=== PATIENT | male | born 1990 | race Hispanic/Latino ===

== ENCOUNTER 2020-09-02 14:24 | Emergency (ER) | payer OTHER, MEDICAID, SELFPAY ==
[2020-09-02] VITALS (8 sets, daily range): BP systolic 168; BP diastolic 96; PULSE 99–110; RESP 20–23; TEMP 36.7–37.1; O2SAT 94–98
--- NOTE | ~2020-09-02 | XR_ITS ---
EXAMINATION: XR chest 1V portable DATE: 09/02/2020 15:05 INDICATION: Shortness of breath. Cough. COVID-19 pneumonia. TECHNIQUE: A single frontal view of the chest was obtained. COMPARISON: CT abdomen and pelvis 06/30/2015 FINDINGS: There are patchy airspace opacities in all lung zones bilaterally. No pleural effusion or p neumothorax. The heart size is normal. IMPRESSION: 1. Diffuse lung disease, consistent with COVID-19 pneumonia. Reviewed, dictated and finalized at location A. ECTIONERY COOKER
[2020-09-02 14:56] LABS: Basophils Percent Auto 0.4 % (0.2-1.2); Eosinophils Percent Auto 0.4 % (0-4.4); Hemoglobin 16.1 g/dL (14.0-18.0); Immature Granulocyte Absolute 0.01 K/mm3 (0.00-0.031); Immature Granulocyte Percent A 0.4 % (0-0.5); Lymphocytes Absolute Auto 0.61 K/mm3 (0.9-3.2); Lymphocytes Percent Auto 21.6 % (18.3-44.2); Mean Corpuscular HGB Conc 34.3 g/dl (32-36); Mean Corpuscular Hemoglobin 32.3 pg (26-34); Mean Corpuscular Volume 94.4 fl (80-100); Mean Platelet Volume 10.9 fl (7.4-10.4); Monocytes Absolute Auto 0.3 K/mm3 (0.1-0.6); Monocytes Percent Auto 8.9 % (2.6-8.5); Neutrophils Absolute Auto 1.9 K/mm3 (1.3-6.7); Neutrophils Percent Auto 68.3 % (45.5-73.1); Platelet Count Result 135 k/mm3 (150-375); Red Blood Count 4.98 M/mm3 (4.6-6.20); Red Cell Distribution Width 12.1 % (11.5-14.5); White Blood Count 2.8 K/mm3 (4.5-10.0)
[2020-09-02 15:08] LABS: Alanine Aminotransferase 51 U/L (4-50); Albumin Level 3.8 g/dL (3.5-5.1); Alkaline Phosphatase 74 U/L (38-126); Anion Gap 5 mmol/L (8-16); Aspartate Amino Transferase 70 U/L (17-59); Bilirubin,Total 0.6 mg/dL (0.2-1.3); Blood Urea Nitrogen 9 mg/dL (9-20); Calcium 8.2 mg/dL (8.4-10.2); Carbon Dioxide 29 mmol/L (22-30); Chloride 101 mmol/L (98-107); Estimated CRCL calculation 171 ml/min; Estimated Glomerular Filt Rate > 60; Glucose 105 mg/dL (75-110); Potassium 3.7 mmol/L (3.4-5.0); Sodium 135 mmol/L (137-145)
[2020-09-02 15:16] LABS: D Dimer 0.41 ug/mL (<0.48)
--- NOTE | 2020-09-02 15:54 | PC.NURSE ---
patient ambulated to restroom and back. RA sat >96%. does have increased cough after exertion. provider updated. resting on stretcher.
--- NOTE | 2020-09-02 16:24 | ED.GENADULT ---
HPI - General Adult General Chief complaint: Upper Respiratory Infection Stated complaint: SOB COVID+ 5JAN Time Seen by Provider: 09/02/20 14:36 Source: patient Mode of arrival: ambulatory Limitations: no limitations History of Present Illness HPI narrative: Patient presents with chief complaint of testing positive for Covid on August 23 and stating that he has noticed that he feels progressively more short of breath. Patient states that he notices the most during exertion or when laying flat or on his left side. Patient denies pain with inspiration. Patient states he sometimes has pain with his intermittent coughs. Patient states the only medication that he has been taking for his symptoms is occasional NyQuil. Patient denies fever, chills, chest pain, nausea, vomiting, diarrhea. Patient states that he finished his last dose of his Z-Elliot yesterday that was given to him by his primary care provider. Patient denies having respiratory diseases such as COPD or asthma. Patient denies taking any home medications. Related Data Allergies Allergy/AdvReac Type Severity Reaction Status Date / Time No Known Allergies Allergy Verified 04/11/16 20:08 Review of Systems Review of Systems: Narrative: CONSTITUTIONAL: Denies fever, chills, or sweats. EYES: Denies visual changes, redness, or discharge. ENT: Denies rhinorrhea, congestion, sore throat, or otalgia. CARDIOVASCULAR: Denies chest pain, palpitations, or edema. RESPIRATORY: Reports cough and dyspnea on exertion GASTROINTESTINAL: Denies abdominal pain, nausea, vomiting, or diarrhea. GENITOURINARY: Denies dysuria or hematuria. SKIN: Denies rash or itching. MUSCULOSKELETAL: Denies back pain, joint pain, or myalgia. NEUROLOGIC: Denies headache, numbness, dizziness, or weakness. PSYCHIATRIC: Denies anxiety or depression. Exam Narrative: Exam Narrative: GENERAL: Well-appearing, well-nourished, and in no acute distress. Morbidly obese HEAD: Normocephalic, atraumatic. EYES: PERRLA and EOMI. NECK: Supple. No adenopathy or masses. CHEST: Clear to auscultation. No respiratory distress. No wheezes rales or rhonchi HEART: Regular rate and rhythm. No murmur heard. Normal peripheral pulses. EXTREMITIES: Normal range of motion. No edema. SKIN: Warm, dry, no rash. NEURO: No focal deficits. Alert and oriented x3. PSYCH: Normal mood and affect. Course Vital Signs Vital signs: Vital Signs Temperature 98.1 F 09/02/20 14:30 Pulse Rate 110 H 09/02/20 14:30 Respiratory Rate 20 09/02/20 14:30 Blood Pressure 168/96 H 09/02/20 14:30 Pulse Oximetry 98 09/02/20 14:30 Temperature 98.1 F 09/02/20 14:30 Pulse Rate 99 09/02/20 15:37 Respiratory Rate 23 H 09/02/20 15:37 Blood Pressure 168/96 H 09/02/20 14:30 Pulse Oximetry 94 09/02/20 15:48 Medical Decision Making MDM Narrative Medical decision making narrative: Patient is maintaining oxygenation even with ambulation his oxygen saturation does not drop below 96% on room air. Patient's chest x-ray does show signs of Covid. Patient D-dimer is negative to r/o PE. Patient's heart rate 98 bpm. I have discussed with patient that his work-up is negative for any emergent symptoms. Discussed with patient the signs and symptoms of Covid and the need to follow-up with his primary care for further investigation to make sure that his symptoms resolve appropriately. Discussed with the patient the importance of self quarantining and keeping a close contact with the health department. Patient instructed to return to emergency department if he has any worsening or emergent symptoms. Vital Signs Vital Signs: Vital Signs Temperature 98.1 F 09/02/20 14:30 Pulse Rate 110 H 09/02/20 14:30 Respiratory Rate 20 09/02/20 14:30 Blood Pressure 168/96 H 09/02/20 14:30 Pulse Oximetry 98 09/02/20 14:30 Temperature 98.1 F 09/02/20 14:30 Pulse Rate 99 09/02/20 15:37 Respiratory Rate 23 H 09/02/20 15:37 Blood Pressur
== END 2020-09-02 16:54 | disposition home or self-care (01) ==
PROVIDERS: Physician Assistant; Emergency Provider Emergency Medicine
DX: U07.1 COVID-19 (principal)
CPT/HCPCS: 36415; 71045; 80053; 85025; 85055; 85380; 99283

== ENCOUNTER 2020-09-15 11:25 | Outpatient (CLI) | payer OTHER, SELFPAY ==
--- NOTE | ~2020-09-15 | XR_ITS ---
EXAMINATION: XR chest 2V EXAM DATE: 09/15/2020 11:57 INDICATION: Chest pain, right-sided sharp chest pain. States COVID 19 diagnosed 10 days ago. TECHNIQUE: Frontal and lateral projections of the chest obtained and reviewed. Comparison is made to prior examination from 09/02/2020. FINDINGS: Resolution of previously seen patchy bilateral COVID pneumonia. The lungs are clear. Ther e are no pleural effusions. The cardiomediastinal silhouette is within normal limits. There is no p neumothorax suspected. The bones and soft tissues are unremarkable. IMPRESSION: No acute cardiopulmonary findings. Reviewed, dictated and finalized at location A. NISTRATIVE PROJECT COORDINATOR
--- NOTE | 2020-09-15 11:56 | ECG_ITS ---
Measurements Intervals [place] Rate: 71 P: 9 SC: 151 QRS: 24 QRSD: 100 T: 12 QT: 371 QTc: 405 Interpretive Statements SINUS RHYTHM BASELINE ARTIFACT- I, III, AVL, AVF NORMAL ECG Electronically Signed On 09-15-2020 12:25:31 CLOTH SANDER by Jian Roche D.O.
== END 2020-09-15 11:26 | disposition home or self-care (01) ==
PROVIDERS: PCP Physician Assistant; Visit Provider Physician Assistant
DX: R07.9 Chest pain, unspecified (principal)
CPT/HCPCS: 71046; 93005

== ENCOUNTER 2023-06-26 14:33 | Emergency (ER) | payer OTHER, SELFPAY ==
--- NOTE | ~2023-06-26 | XR_ITS ---
EXAMINATION: XR abdomen obstructive series DATE: 06/26/2023 15:16 INDICATION: Upper abdominal pain TECHNIQUE: Upright and supine views of the abdomen were obtained. COMPARISON: 12/07/2006 FINDINGS: The bowel gas pattern is normal. A moderate volume of colonic stool is present. No dilated loops of bowel are evident. There is no free intraperitoneal gas. There are minimal airspace opacitie s of the bases. There are phleboliths of the pelvis. IMPRESSION: 1. Nonspecific abdomen. 2. Bibasilar airspace opacities, consistent with atelectasis versus pneumonia. Reviewed, dictated and finalized at location B. RCEMENT OFFICER
--- NOTE | 2023-06-26 14:36 | ED.NAVMDI ---
HPI - Nausea/Vomiting/Diarrhea General Chief complaint: Nausea/Vomiting/Diarrhea Stated complaint: NAUSEA/LIGHT HEADED/UPPER ABD PAIN WHEN EATING Time Seen by Provider: 06/26/23 14:39 Source: patient and RN notes reviewed History of Present Illness HPI Narrative: Patient is a 33-year-old male who presents to urgent care with complaints of nausea and abdominal discomfort when eating. Patient states he does not have any pain when he fasts. Patient states that today he only ate 3 cookies and had severe epigastric pains. Patient has been diagnosed in the past with reflux and did cut out spicy foods from his diet. Patient states he does drink caffeine and has gained weight since his initial diagnosis of reflux. Patient also does not take omeprazole daily as he was prescribed. Patient reports of nausea. Currently denies any vomiting or pain at this time. No acute distress noted. Patient aware of the plan of care. Some parts of this dictation were generated by voice recognition software and may contain typographical and/or grammatical inaccuracies. Related Data Home Medications Medication Instructions Recorded Confirmed No Home Medications 06/26/23 06/26/23 Allergies Allergy/AdvReac Type Severity Reaction Status Date / Time shellfish derived Allergy Swelling Verified 06/26/23 15:31 of Lip/Tongue/Throat Review of Systems Review of Systems: CONSTITUTIONAL: Denies fever, chills, or sweats. EYES: Denies visual changes, redness, or discharge. ENT: Denies rhinorrhea, congestion, sore throat, or otalgia. CARDIOVASCULAR: Denies chest pain, palpitations, or edema. RESPIRATORY: Denies cough or dyspnea. GASTROINTESTINAL: Reports abdominal discomfort/epigastric pains and nausea when eating GENITOURINARY: Denies dysuria or hematuria. SKIN: Denies rash or itching. MUSCULOSKELETAL: Denies back pain, joint pain, or myalgia. NEUROLOGIC: Denies headache, numbness, or weakness. All other systems reviewed are negative, except as documented in HPI. PMFSH Comments At the time of my signature, I reviewed and agree with the nursing past medical, surgical, social, and family history. There is no relevant family history pertinent to the patient complaint. Exam Narrative: GENERAL: This is a well-nourished, well-developed patient, in no apparent distress. HEAD: normocephalic, atraumatic. EYES: PERRL. Sclera clear/white. Vision is grossly intact. EARS: External ears normal NOSE: External nose normal with no obvious nasal discharge, nares without redness, no rhinorrhea. THROAT: Mucous membranes moist NECK: Neck supple, RESPIRATORY: Clear to auscultation. Breath sounds equal bilaterally. No wheezes, rales, or rhonchi. GASTROINTESTINAL: Reproducible epigastric tenderness on palpation. Bowel sounds are active. No hepato-splenomegaly, or palpable masses. No guarding. SKIN: warm, intact with no suspicious lesions or rash, good texture and turgor. NEURO: awake, alert, and oriented to person, place and time. There were no obvious focal neurologic abnormalities. EXTREMITIES: No clubbing, cyanosis, or edema. Course Course Level of Care: Express Care Visit Vital Signs Vital signs: Vital Signs Temperature 97.8 F 06/26/23 14:55 Pulse Rate 85 06/26/23 14:55 Respiratory Rate 16 06/26/23 14:55 Blood Pressure 134/99 H 06/26/23 14:55 Pulse Oximetry 98 06/26/23 14:55 Temperature 97.8 F 06/26/23 14:55 Pulse Rate 85 06/26/23 14:55 Respiratory Rate 16 06/26/23 14:55 Blood Pressure 134/99 H 06/26/23 14:55 Pulse Oximetry 98 06/26/23 14:55 Reviewed- Patient is informed that they may have pre-hypertension or hypertension based on a blood pressure reading in the department. I recommend the patient call the primary care provider listed on their discharge instructions or a physician of their choice this week to arrange follow-up for further evaluation of possible pre-hypertension or hypertension. Trans
[2023-06-26 14:55] VITALS: BP 134/99; PULSE 85; RESP 16; TEMP 36.6; O2SAT 98
== END 2023-06-26 15:40 | disposition short-term general hospital (02) ==
PROVIDERS: Emergency Provider Nurse Practitioner Family
DX: R11.0 Nausea (principal); R10.13 Epigastric pain; K21.9 Gastro-esophageal reflux disease without esophagitis
CPT/HCPCS: 74019; 99213; G0463

== ENCOUNTER 2023-06-26 16:15 | Emergency (ER) | payer OTHER, SELFPAY ==
--- NOTE | ~2023-06-26 | CT_ITS ---
EXAMINATION: CT abdomen pelvis w con DATE: 06/26/2023 18:19 INDICATION: Epigastric tenderness and pain. TECHNIQUE: Computed tomography (CT) of the abdomen and pelvis was performed with 100 mL Omnipaque 350 intravenous contrast. Automated exposure control and iterative reconstruction technique were employe d. The dose-length product was 1411.82 mGy-cm. COMPARISON: CT abdomen and pelvis 06/30/2015 FINDINGS: The visualized portions of the lung bases demonstrate minimal atelectasis. No pleural effus ion. The heart size is normal. No pericardial effusion. There is diffuse hepatic steatosis. The gallb ladder, spleen, pancreas, adrenal glands, and kidneys are normal. There are no dilated loops of bowel . The appendix is normal. There is prominent fat in left inguinal canal that may be a hernia. There a re no pathologically enlarged lymph nodes. There is no free intraperitoneal fluid. There is mild thor acic and lumbar spondylosis. IMPRESSION: 1. Diffuse hepatic steatosis. Reviewed, dictated and finalized at location E. ROL PANEL ASSEMBLER
[2023-06-26 16:22] VITALS: BP 141/95; PULSE 94; RESP 16; TEMP 36.5; O2SAT 100
--- NOTE | 2023-06-26 17:52 | ED.GENADULT ---
HPI - General Adult General Chief complaint: Nausea/Vomiting/Diarrhea Stated complaint: n/v/d Time Seen by Provider: 06/26/23 17:25 Source: patient Mode of arrival: ambulatory Limitations: no limitations History of Present Illness HPI narrative: This is a 33-year-old male who presents to the ED from urgent care with chief complaint of epigastric abdominal pain x2 days. Reports this has been going on intermittently for the past few months but is much worse in the past couple of days. Reports that the pain specifically comes on with eating. Reports that he ate 3 cookies this morning and has been in pain ever since. Reports that he has a nausea as well but no vomiting. Reports constipation. Denies fevers, chills, problems with urination, chest pain, shortness of breath, cough. Also states that he has history of acid reflux but has not been taking his medications for this recently as he thought the problem was getting better. Related Data Home Medications Medication Instructions Recorded Confirmed No Home Medications 06/26/23 06/26/23 Allergies Allergy/AdvReac Type Severity Reaction Status Date / Time shellfish derived Allergy Swelling Verified 06/26/23 15:31 of Lip/Tongue/Throat Review of Systems Review of Systems: All systems as dictated in HPI Exam Narrative: GENERAL: Well-appearing, well-nourished, and in no acute distress. HEAD: Normocephalic, atraumatic. EYES: PERRLA and EOMI. ENT: Nares clear, no rhinorrhea or epistaxis. Mucous membranes moist. Oropharynx without tonsillar hypertrophy exudate or other lesions. NECK: Supple. No adenopathy or masses. CHEST: No respiratory distress. Clear to auscultation. No wheezes rales or rhonchi HEART: Regular rate and rhythm. No murmur heard. Normal peripheral pulses. ABDOMEN: Soft, nontender, nondistended, normal active bowel sounds. MSK: Normal range of motion. No edema. SKIN: Warm, dry, no rash. NEURO: Alert and oriented x3. No focal deficits. PSYCH: Normal mood and affect. Course Course Emergency Course: Reevaluation 1933: Patient is asymptomatic without intervention. He would like to go home Vital Signs Vital signs: Vital Signs Temperature 97.7 F 06/26/23 16:22 Pulse Rate 94 06/26/23 16:22 Respiratory Rate 16 06/26/23 16:22 Blood Pressure 141/95 H 06/26/23 16:22 Pulse Oximetry 100 06/26/23 16:22 Oxygen Delivery Room Air 06/26/23 16:22 Temperature 97.7 F 06/26/23 16:22 Pulse Rate 79 06/26/23 19:18 Respiratory Rate 18 06/26/23 19:18 Blood Pressure 103/70 06/26/23 19:18 Pulse Oximetry 100 06/26/23 19:18 Oxygen Delivery Room Air 06/26/23 16:22 Medical Decision Making MDM Narrative Medical decision making narrative: This is a 33-year-old male who presents to the ED with chief complaint of epigastric pain intermittently for the last several months and worse in the last couple of days. Vitals are normal. Exam reveals no tenderness. No evidence of acute abdomen. He was sent here by urgent care for evaluation of this epigastric pain and was told he may need a CT scan. He is seeking this today. Lab work is grossly unremarkable. CT scan was ordered and shows only diffuse hepatic steatosis. Overall symptoms are most likely consistent with gastritis. Some concern for possible gastric ulcer , encouraged him to follow-up with his regular doctor for this. Also encouraged to restart his daily omeprazole. He did not require any intervention here in the department. He feels ready to go home. Pt will be discharged in stable condition. Return precautions given and supportive measures discussed. Pt is understanding and agreeable with plan for discharge and follow-up with PCP. Vital Signs Vital Signs: Vital Signs Temperature 97.7 F 06/26/23 16:22 Pulse Rate 94 06/26/23 16:22 Respiratory Rate 16 06/26/23 16:22 Blood Pressure 141/95 H 06/26/23 16:22 Pulse Oximetry 100
[2023-06-26 17:56] LABS: Basophils Percent Auto 0.5 % (0.2-1.2); Eosinophils Absolute Auto 0.3 K/mm3 (0-0.3); Eosinophils Percent Auto 3.5 % (0-4.4); Hematocrit 52.2 % (42.0-52.0); Hemoglobin 17.7 g/dL (14.0-18.0); Immature Granulocyte Absolute 0.01 K/mm3 (0.00-0.031); Immature Granulocyte Percent A 0.1 % (0-0.5); Lymphocytes Absolute Auto 1.55 K/mm3 (0.9-3.2); Lymphocytes Percent Auto 18.5 % (18.3-44.2); Mean Corpuscular HGB Conc 33.9 g/dl (32-36); Mean Corpuscular Hemoglobin 32.5 pg (26-34); Mean Platelet Volume 10.7 fl (7.4-10.4); Monocytes Absolute Auto 0.6 K/mm3 (0.1-0.6); Monocytes Percent Auto 7.2 % (2.6-8.5); Neutrophils Absolute Auto 5.9 K/mm3 (1.3-6.7); Neutrophils Percent Auto 70.2 % (45.5-73.1); Platelet Count Result 259 k/mm3 (150-375); Red Blood Count 5.44 M/mm3 (4.6-6.20); Red Cell Distribution Width 12.9 % (11.5-14.5); White Blood Count 8.4 K/mm3 (4.5-10.0)
[2023-06-26 18:03] LABS: Alanine Aminotransferase 52 U/L (6-50); Albumin Level 4.7 g/dL (3.5-5.1); Alkaline Phosphatase 98 U/L (38-126); Anion Gap 6 mmol/L (8-16); Aspartate Amino Transferase 62 U/L (17-59); Blood Urea Nitrogen 8 mg/dL (9-20); Calcium 9.7 mg/dL (8.4-10.2); Carbon Dioxide 28 mmol/L (22-30); Chloride 104 mmol/L (98-107); Estimated CRCL calculation 209 ml/min; Estimated Glomerular Filt Rate > 60; Glucose 96 mg/dL (65-110); Lipase 97 U/L (23-300); Potassium 3.8 mmol/L (3.4-5.0); Sodium 138 mmol/L (137-145)
[2023-06-26 18:33] LABS: Appearance Urine Cloudy (Clear); Bacteria Urine None Seen /hpf; Bilirubin Urine 1+ (Negative); Blood Urine Negative (Negative); Color Urine Dark Yellow (Yellow); Glucose Urine UA Negative (Negative); Ketones Urine Negative (Negative); Leukocyte Esterase Ur Trace LEU/UL (Negative); Need Manual Microscopic Reviewed; Nitrate Urine Negative (Negative); Protein Urine 2+ mg/dL (Negative); Specific Grav Ur 1.025 (1.001-1.035); Squamous Epithelial Cell Urine Occasional /hpf (Few); WBC Urine 0-5 /hpf
[2023-06-26 18:35] LABS: Add Urine Microscopic? YES
[2023-06-26 19:18] VITALS: BP 103/70; PULSE 79; RESP 18; O2SAT 100
== END 2023-06-26 19:43 | disposition home or self-care (01) ==
PROVIDERS: Emergency Provider Physician Assistant; PCP Family Medicine
DX: K29.70 Gastritis, unspecified, without bleeding (principal); K21.9 Gastro-esophageal reflux disease without esophagitis
CPT/HCPCS: 36415; 74019; 74177; 80048; 80076; 81001; 83690; 85025; 99284; Q9967

== ENCOUNTER 2023-12-08 15:01 | Emergency (ER) | payer OTHER, SELFPAY ==
[2023-12-08 15:05] VITALS: BP 157/101; PULSE 89; RESP 18; TEMP 36.3; O2SAT 100
--- NOTE | 2023-12-08 17:26 | PC.NURSE ---
pt refused xray, stated no need
--- NOTE | 2023-12-08 18:52 | ED.GENADULT ---
HPI - General Adult General Chief complaint: Wound/Laceration Stated complaint: left middle finger lac Time Seen by Provider: 12/08/23 17:37 Source: patient Mode of arrival: ambulatory Limitations: no limitations History of Present Illness HPI narrative: This is a 33 year old male who presents to the ED with chief complaint of laceration to the left 3rd finger. 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 Reports flap laceration to the 3rd finger and no further sites of pain or injury. Reports tetanus status up-to-date. Denies numbness or weakness Related Data Home Medications Medication Instructions Recorded Confirmed No Home Medications 06/26/23 06/26/23 Allergies Allergy/AdvReac Type Severity Reaction Status Date / Time shellfish derived Allergy Swelling Verified 06/26/23 15:31 of Lip/Tongue/Throat Review of Systems Review of Systems: All systems as dictated in HPI Exam Narrative: GENERAL: Well-appearing, well-nourished, and in no acute distress. MSK: Normal range of motion. No edema. SKIN: 2 cm flap laceration to the volar left 3rd finger. No active bleeding NEURO: Alert and oriented x3. No focal deficits. PSYCH: Normal mood and affect. Course Vital Signs Vital signs: Vital Signs Temperature 97.4 F L 12/08/23 15:05 Pulse Rate 89 12/08/23 15:05 Respiratory Rate 18 12/08/23 15:05 Blood Pressure 157/101 H 12/08/23 15:05 Pulse Oximetry 100 12/08/23 15:05 Temperature 97.4 F L 12/08/23 15:05 Pulse Rate 89 12/08/23 15:05 Respiratory Rate 18 12/08/23 15:05 Blood Pressure 157/101 H 12/08/23 15:05 Pulse Oximetry 100 12/08/23 15:05 Procedures Laceration Laceration 1: Date: 12/08/23 Time: 18:54 Site: hand Side (If applicable): left Size (cm): 2 Description: flap Depth: simple, single layer Local Anesthetic: lidocaine 1% Amount of anesthesia used (mL): 2 ====== Skin Level ====== Skin layer closed with: nylon Size (cm): 5-0 Number of sutures: 3 Technique: simple, interrupted ====== Subcutaneous Layer ====== ====== Muscle Layer ====== ====== Tendon Layer ====== Medical Decision Making MDM Narrative Medical decision making narrative: This is a 33-year-old male who presents to the ED with chief complaint of laceration to the left 3rd finger. Vitals are normal. Exam shows flap laceration to the volar aspect of the left 3rd finger. The wound was well cleansed and irrigated here. Primarily closed with Ethilon sutures. His Tdap is up-to-date. Pt will be discharged in stable condition. Return precautions given and supportive measures discussed. Pt is understanding and agreeable with plan for discharge and follow-up with PCP. Vital Signs Vital Signs: Vital Signs Temperature 97.4 F L 12/08/23 15:05 Pulse Rate 89 12/08/23 15:05 Respiratory Rate 18 12/08/23 15:05 Blood Pressure 157/101 H 12/08/23 15:05 Pulse Oximetry 100 12/08/23 15:05 Temperature 97.4 F L 12/08/23 15:05 Pulse Rate 89 12/08/23 15:05 Respiratory Rate 18 12/08/23 15:05 Blood Pressure 157/101 H 12/08/23 15:05 Pulse Oximetry 100 12/08/23 15:05 Discharge Plan Discharge Clinical Impression: Laceration Patient Disposition: Home, Self-Care Condition: Stable Instructions: Antibiotic Form Additional Instructions: Keep wound clean and dry. Do not soak, take baths, or swim until wound is completely healed. If any signs of infection such as redness, swelling, increasing pain, drainage of purulent discharge, streaks up your extremity develop, seek medical attention immediately. Followup with your primary care provider in [7] days for suture removal. Prescriptions: No Action No Home Medications Follow-up/Referrals
== END 2023-12-08 19:00 | disposition home or self-care (01) ==
PROVIDERS: Emergency Provider Physician Assistant; PCP Family Medicine
DX: S61.213A Laceration without foreign body of left middle finger without damage to nail, initial encounter (principal); W27.0XXA Contact with workbench tool, initial encounter
CPT/HCPCS: 12001; 99282